=== PATIENT | male | born 1945 | race African-American/Black ===

== ENCOUNTER 2017-07-09 03:00 | Emergency (ER) | payer OTHER, MEDICARE ==
[~2017-07-09 03:00] MED LIST: ASPI81TA82 PO; NITR-29 PO; QUET200 PO; TERA5CAP3 PO
[2017-07-09 03:01] VITALS: BP 159/93; PULSE 90; RESP 16; TEMP 98.5; O2SAT 98
[2017-07-09] MEDS ORDERED: ASPI81CH7 PO (03:14)
[2017-07-09] MEDS ORDERED: TERA5CAP3 PO (03:14)
[2017-07-09] MEDS ORDERED: SODIUM CHLOR 0.9% 1000 ML INJ 1,000 ML IV ONE (04:30)
[2017-07-09 04:47] LABS: BASOPHIL % 0.3 % (0.0-2.0); EOSINOPHIL # 0.1 TH/MM3 (0-0.4); EOSINOPHIL % 1.5 % (0.0-4.0); HEMATOCRIT 47.9 % (39.0-51.0); HEMO FLAGS DIFF FINAL; LYMPH % 11.3 % (9.0-44.0); LYMPHOCYTE # 1.1 TH/MM3 (1.0-4.8); MEAN CELL VOLUME 96.6 FL (80.0-100.0); MEAN CORPUSCULAR HEMOGLOBIN 32.3 PG (27.0-34.0); MEAN CORPUSCULAR HGB CONC 33.4 % (32.0-36.0); MONO % 5.1 % (0.0-8.0); NEUT % 81.8 % (16.0-70.0); PLATELET COUNT 275 TH/MM3 (150-450); RED BLOOD COUNT 4.96 MIL/MM3 (4.50-5.90); RED CELL DISTRIBUTION WIDTH 14.3 % (11.6-17.2); WHITE BLOOD COUNT 9.8 TH/MM3 (4.0-11.0)
[2017-07-09 04:50] LABS: BLOOD, URINE NEG (NEG); GLUCOSE,URINE NEG (NEG); KETONE, URINE NEG (NEG); NITRITE,URINE NEG (NEG); URINE COLOR LIGHT-YELLOW (YELLW/STRAW)
[2017-07-09 04:52] LABS: COMMENT (UR) CULT NOT INDICATED; CULTURE IF INDICATED CULT NOT INDICATED
[2017-07-09 05:11] LABS: ANION GAP 11 MEQ/L (5-15); AST (GOT) 22 U/L (15-37); BICARBONATE 22.7 MEQ/L (21.0-32.0); BLOOD UREA NITROGEN 8 MG/DL (7-18); CHLORIDE 106 MEQ/L (98-107); GLOMERULAR FILTRATION RATE 103 ML/MIN (>89); SODIUM (NA) 140 MEQ/L (136-145)
[2017-07-09 05:14] LABS: ALKALINE PHOSPHATASE 87 U/L (45-117); ALT (GPT) 25 U/L (12-78); TOTAL BILIRUBIN ADULT 0.4 MG/DL (0.2-1.0)
--- NOTE | 2017-07-09 05:23 | PD ---
HPI Chief Complaint: Complaint Time Seen by Provider: 03:52 Travel History International Travel<30 days: No Contact w/Intl Traveler<30days: No Traveled to known affect area: No History of Present Illness HPI This is a 71-year-old male who has a history of enlarged prostate who presents to the emergency department with difficulty urinating for 5 hours. He feels pressure in his lower abdomen, constant, moderate severity, with no fevers or chills. [facility] he [facility] for [facility]. He's required a catheter in the past. [facility] Past Medical History Medical History: Denies Significant Hx ?: Not Past Surgical History Surgical History: No Previous Surgery Social History Alcohol Use: Yes Tobacco Use: No (hx) Substance Use: No Allergies-Medications (Allergen,Severity, Reaction): Coded Allergies: sertraline (Unverified Allergy, Unknown, 07/09/17) Reported Meds & Prescriptions Reported Meds & Active Scripts Active Reported Terazosin (Terazosin HCl) 5 Mg Cap 5 Mg PO HS Aspirin Children's (Aspirin) 81 Mg Chew 81 Mg PO DAILY Review of Systems Except as stated in HPI: all other systems reviewed are Neg Physical Exam Narrative GENERAL:Well appearing, no acute distress SKIN: Focused skin assessment warm and dry. HEAD: Atraumatic. Normocephalic. EYES: Pupils equal and round. No injection or drainage. ENT: Moist mucous membranes NECK: Trachea midline. CARDIOVASCULAR: Regular rate and rhythm. No murmur appreciated. RESPIRATORY: Clear to auscultation. Breath sounds equal bilaterally. GASTROINTESTINAL: Abdomen soft, mildly tender to palpation in the suprapubic region with no rebound or guarding. MUSCULOSKELETAL: No obvious deformities. NEUROLOGICAL: Awake and alert. No obvious cranial nerve deficits. Moving all extremities. PSYCHIATRIC: Appropriate mood and affect; insight and judgment normal. Data Data Last Documented VS Vital Signs Date Time Temp Pulse Resp B/P (MAP) Pulse Ox O2 Delivery O2 Flow Rate FiO2 07/09/17 03:01 98.5 90 16 159/93 (115) 98 Room Air Orders Orders Urinary Catheter Insert/Apply (07/09/17 03:55) Urinalysis - C+S If Indicated (07/09/17 04:03) Complete Blood Count With Diff (07/09/17 04:27) Comprehensive Metabolic Panel (07/09/17 04:27) ^ Insert Iv (07/09/17 04:27) Sodium Chlor 0.9% 1000 Ml Inj (Ns 1000 M (07/09/17 04:30) Labs Laboratory Tests Test 07/09/17 04:20 White Blood Count 9.8 TH/MM3 Red Blood Count 4.96 MIL/MM3 Hemoglobin 16.0 GM/DL Hematocrit 47.9 % Mean Corpuscular Volume 96.6 FL Mean Corpuscular Hemoglobin 32.3 PG Mean Corpuscular Hemoglobin Concent 33.4 % Red Cell Distribution Width 14.3 % Platelet Count 275 TH/MM3 Mean Platelet Volume 8.2 FL Neutrophils (%) (Auto) 81.8 % Lymphocytes (%) (Auto) 11.3 % Monocytes (%) (Auto) 5.1 % Eosinophils (%) (Auto) 1.5 % Basophils (%) (Auto) 0.3 % Neutrophils # (Auto) 8.0 TH/MM3 Lymphocytes # (Auto) 1.1 TH/MM3 Monocytes # (Auto) 0.5 TH/MM3 Eosinophils # (Auto) 0.1 TH/MM3 Basophils # (Auto) 0.0 TH/MM3 CBC Comment DIFF FINAL Differential Comment Urine Color LIGHT-YELLOW Urine Turbidity CLEAR Urine pH 5.0 Urine Specific [place] 1.004 Urine Protein NEG mg/dL Urine Glucose (UA) NEG mg/dL Urine Ketones NEG mg/dL Urine Occult Blood NEG Urine Nitrite NEG Urine Bilirubin NEG Urine Urobilinogen LESS THAN 2.0 MG/DL Urine Leukocyte Esterase NEG Urine RBC 1 /hpf Microscopic Urinalysis Comment CULT NOT INDICATED Blood Urea Nitrogen 8 MG/DL Creatinine 0.89 MG/DL Random Glucose 102 MG/DL Total Protein 7.6 GM/DL Albumin 4.0 GM/DL Calcium Level 8.6 MG/DL Alkaline Phosphatase 87 U/L Aspartate Amino Transf (AST/SGOT) 22 U/L Alanine Aminotransferase (ALT/SGPT) 25 U/L Total Bilirubin 0.4 MG/DL Sodium Level 140 MEQ/L Potassium Level 4.0 MEQ/L Chloride Level 106 MEQ/L Carbon Dioxide Level 22.7 MEQ/L Anion Gap 11 MEQ/L Estimat Glomerular Filtration Rate 103 ML/MIN MDM Medical Decision Making Medical Screen Exam Complete: Yes Emergency Medical Condition: Yes Interpretation(s) No leukocytosis Hypertension Electrolytes are reassuring Urinalysis is negative for infection Differential Diagnosis Urinary retention, BPH, electrolyte abnormality, UTI Narrative Course This is a 71-year-old male who has a history of BPH who presents to the emergency department in acute urinary retention. A Khan catheter was placed and he diuresed 1500 cc of urine. Labs are obtained which were reassuring. The patient appears well and I think the patient can be discharged and follow up with urology. Diagnosis Primary Impression: Acute urinary retention Patient Instructions: General Instructions Additional Instructions: If you develop fever, persistent vomiting, back pain, or inability to eat return to the emergency department. Follow-up with a urologist as soon as possible. Med/Other Pt SpecificInfo: No Change to Meds Disposition: 01 DISCHARGE HOME Condition: Stable Nataliia Clarke MD Jul 09, 2017 05:23
== END 2017-07-09 05:59 | disposition home or self-care (01) ==
LOC: NEPC 03:00
DX: R33.9 Retention of urine, unspecified (principal); N40.1 Benign prostatic hyperplasia with lower urinary tract symptoms
CPT/HCPCS: 51702; 80053; 81001; 85025; 96360; 99284; J7030

== ENCOUNTER 2017-07-26 06:05 | Emergency (ER) | payer OTHER, MEDICARE ==
[~2017-07-26] VITALS: Ht 185.4 cm; Wt 66.0 kg
[~2017-07-26 06:05] MED LIST changes: +ASPI81CH7 PO; -ASPI81TA82 PO; -NITR-29 PO; -QUET200 PO
[2017-07-26 06:07] VITALS: BP 187/85; PULSE 71; RESP 16; TEMP 97.8; O2SAT 94
[2017-07-26 06:31] VITALS: BP 172/83; PULSE 57; RESP 16; O2SAT 93
--- NOTE | 2017-07-26 06:38 | PD ---
HPI Chief Complaint: Medical Clearance Time Seen by Provider: 06:28 Travel History International Travel<30 days: No Contact w/Intl Traveler<30days: No Traveled to known affect area: No History of Present Illness HPI Patient is a 71-year-old male presenting to the emergency department to have his Khan catheter removed. Patient states it was placed approximately 3 weeks ago due to urinary retention. He does not have an appointment with his urologist for another month and he states it's irritated. Patient reports his pain as a 3 out of 10 and describes it as sore. He denies any abdominal pain, fevers. He reports a history of BPH and is currently on Terazosin. [facility] Past Medical History Genitourinary: Yes Social History Alcohol Use: Yes Tobacco Use: No (hx) Substance Use: No Allergies-Medications (Allergen,Severity, Reaction): Coded Allergies: sertraline (Unverified Allergy, Unknown, 07/26/17) Reported Meds & Prescriptions Reported Meds & Active Scripts Active Reported Terazosin (Terazosin HCl) 5 Mg Cap 5 Mg PO HS Aspirin Children's (Aspirin) 81 Mg Chew 81 Mg PO DAILY Review of Systems Except as stated in HPI: all other systems reviewed are Neg Genitourinary: Positive: Other (Khan catheter) Physical Exam Narrative GENERAL: Thin, well-developed, alert gentleman. Resting comfortably in no acute distress. SKIN: Warm and dry. HEAD: Normocephalic. EYES: No scleral icterus. No injection or drainage. NECK: Supple, trachea midline. No JVD or lymphadenopathy. CARDIOVASCULAR: Regular rate and rhythm without murmurs, gallops, or rubs. RESPIRATORY: Breath sounds equal bilaterally. No accessory muscle use. GASTROINTESTINAL: Abdomen soft, non-tender, nondistended. GENITOURINARY: No urethral discharge. Urinary catheter in place MUSCULOSKELETAL: No cyanosis, or edema. BACK: Nontender without obvious deformity. No CVA tenderness. Data Data Last Documented VS Vital Signs Date Time Temp Pulse Resp B/P (MAP) Pulse Ox O2 Delivery O2 Flow Rate FiO2 07/26/17 06:31 57 16 172/83 (112) 93 07/26/17 06:07 97.8 [facility] Medical Decision Making Medical Screen Exam Complete: Yes Emergency Medical Condition: Yes Interpretation(s) Vital Signs Date Time Temp Pulse Resp B/P (MAP) Pulse Ox O2 Delivery O2 Flow Rate FiO2 07/26/17 06:19 56 16 07/26/17 06:07 97.8 71 16 187/85 (288) 20 Differential Diagnosis Obstruction versus retention versus urinary tract infection versus other Narrative Course Patient is a 71-year-old male presenting to the emergency department to have a urinary catheter removed due to irritation. Patient has been seen for this reason in the past. He has an appointment with his urologist in one month. Patient was advised on the risks of removing the urinary catheter including possible retention again. Patient continued to want his catheter removed. Catheter was removed without difficulty. Patient will be kept to assess whether he can urinate without difficulty prior to discharge. Care of patient transferred to SAMIRA Bianchi. She will determine patient' s disposition. Urvashi Meier Jul 26, 2017 06:38
--- NOTE | 2017-07-26 08:41 | PD ---
Physical Exam Time Seen by Provider: 08:39 Narrative Please refer to previous providers documentation for details surrounding the patient's current visit. Data Data Last Documented VS Vital Signs Date Time Temp Pulse Resp B/P (MAP) Pulse Ox O2 Delivery O2 Flow Rate FiO2 07/26/17 06:31 57 16 172/83 (112) 93 07/26/17 06:07 97.8 Orders Orders Diet Regular Basic (07/26/17 Breakfast) MDM Medical Record Reviewed: Yes Supervised Visit with HANNA: No Narrative Course Patient presented with Khan catheter in place. It has been removed by [facility] the patient would void and then be discharged. Patient has voided at this time. He'll be discharged home. He has an appointment with urology next week. He agrees to return immediately with any acute worsening symptoms. Diagnosis Primary Impression: Encounter for Khan catheter removal Referrals: Primary Care Physician Urologist Patient Instructions: General Instructions, Urinary Retention in Men (DC) Additional Instruction: Maintain adequate oral hydration Follow-up with her primary care provider Keep your urologist appointment Return immediately to the emergency department with any acute worsening of symptoms Med/Other Pt SpecificInfo: No Change to Meds Disposition: 01 DISCHARGE HOME Condition: Stable MunozMaddison champagne [facility] Jul 26, 2017 08:41
[2017-07-26 08:51] VITALS: BP 152/76
== END 2017-07-26 09:02 | disposition home or self-care (01) ==
LOC: NEPD 06:05
DX: Z46.6 Encounter for fitting and adjustment of urinary device (principal); T83.84XA Pain due to genitourinary prosthetic devices, implants and grafts, initial encounter; Z87.448 Personal history of other diseases of urinary system
CPT/HCPCS: 99283

== ENCOUNTER 2017-07-27 03:03 | Emergency (ER) | payer OTHER, MEDICARE ==
[~2017-07-27] VITALS: Ht 185.4 cm; Wt 65.0 kg
[2017-07-27 03:03] VITALS: BP 219/98; PULSE 83; RESP 18; TEMP 97.8; O2SAT 95
--- NOTE | 2017-07-27 03:36 | PD ---
HPI Chief Complaint: Complaint Time Seen by Provider: 03:16 Travel History International Travel<30 days: No Contact w/Intl Traveler<30days: No Traveled to known affect area: No History of Present Illness HPI patient had his bautista removed in [facility] ED, and was able to void...but now less than 24 hours later, he has severe inability to urinate but with suprapubic pain and pressure, feels just like when he had urinary retention. patient denies fever/cp/n/v/d/cough/rhinorrhea or any other symptoms. pcp [facility] Past Medical History Medical History: Denies Significant Hx Diminished Hearing: No Genitourinary: Yes Immunizations Current: Yes Past Surgical History Surgical History: No Previous Surgery Social History Alcohol Use: Yes (2 beer per day) Tobacco Use: Yes ( 2 cig per day ) Substance Use: No Allergies-Medications (Allergen,Severity, Reaction): Coded Allergies: sertraline (Unverified Allergy, Unknown, 07/26/17) Reported Meds & Prescriptions Reported Meds & Active Scripts Active Reported Terazosin (Terazosin HCl) 5 Mg Cap 5 Mg PO HS Aspirin Children's (Aspirin) 81 Mg Chew 81 Mg PO DAILY Review of Systems Except as stated in HPI: all other systems reviewed are Neg Genitourinary: Positive: Decreased Urinary Output, Pelvic Pain (suprapubic pain , unable to urinate) Physical Exam Narrative GENERAL: SKIN: Warm and dry. HEAD: Atraumatic. Normocephalic. EYES: Pupils equal and round. No scleral icterus. No injection or drainage. ENT: No nasal bleeding or discharge. Mucous membranes pink and moist. NECK: Trachea midline. No JVD. CARDIOVASCULAR: Regular rate and rhythm. RESPIRATORY: No accessory muscle use. Clear to auscultation. Breath sounds equal bilaterally. GASTROINTESTINAL: Abdomen soft, suprapubic ttp, and distended urinary bladder palpated. MUSCULOSKELETAL: Extremities without clubbing, cyanosis, or edema. No obvious deformities. NEUROLOGICAL: Awake and alert. No obvious cranial nerve deficits. Motor grossly within normal limits. Five out of 5 muscle strength in the arms and legs. Normal speech. PSYCHIATRIC: Appropriate mood and affect; insight and judgment normal. Data Data Last Documented VS Vital Signs Date Time Temp Pulse Resp B/P (MAP) Pulse Ox O2 Delivery O2 Flow Rate FiO2 07/27/17 03:03 97.8 83 18 219/98 (138) 95 Room Air Orders Orders Urinalysis - C+S If Indicated (07/27/17 03:26) Urinary Catheter Insert/Apply (07/27/17 03:26) Labs Laboratory Tests Test 07/27/17 03:30 Urine Color LIGHT-YELLOW Urine Turbidity CLEAR Urine pH 5.5 Urine Specific [place] 1.007 Urine Protein NEG mg/dL Urine Glucose (UA) NEG mg/dL Urine Ketones NEG mg/dL Urine Occult Blood NEG Urine Nitrite NEG Urine Bilirubin NEG Urine Urobilinogen LESS THAN 2.0 MG/DL Urine Leukocyte Esterase SMALL Urine WBC 4 /hpf Microscopic Urinalysis Comment CULT NOT INDICATED MDM Medical Decision Making Medical Screen Exam Complete: Yes Emergency Medical Condition: Yes Medical Record Reviewed: Yes Differential Diagnosis UTI V URINARY RETENTION V BPH OR STENOSIS REQUIRING DILATION Narrative Course PATIENT GREATLY RELIEVED AFTER BAUTISTA PLACED, HE VOIDED 800CC ON INITIAL VOID. PATIENT'S UA NEG FOR UTI. PATIENT HAS NOW PROVEN THAT WIHTOUT A UROLOGICAL PROCEDURE WILL RECURR Diagnosis Primary Impression: urinary retention Referrals: Linden Brown MD FOR FURTHER CARE OF YOUR BAUTISTA AND MAKE THEM AWARE THAT WHENEVER YOU HAVE NOT HAD A BAUTISTA, YOU CAN'T VOID, SO YOU WILL NEED A PROCEDURE TO HELP ENLARGE THE URETHRA AND BE ABLE TO VOID WITHOUT BAUTISTA Disposition: 01 DISCHARGE HOME Condition: Stable Idris Webb MD Jul 27, 2017 03:36
[2017-07-27 03:48] LABS: BLOOD, URINE NEG (NEG); COMMENT (UR) CULT NOT INDICATED; CULTURE IF INDICATED CULT NOT INDICATED; GLUCOSE,URINE NEG (NEG); KETONE, URINE NEG (NEG); NITRITE,URINE NEG (NEG); PH, URINE 5.5 (5.0-8.5); URINE COLOR LIGHT-YELLOW (YELLW/STRAW)
[2017-07-27 05:15] VITALS: BP 152/85
== END 2017-07-27 05:16 | disposition home or self-care (01) ==
LOC: NEPC 03:03
DX: R33.9 Retention of urine, unspecified (principal); Z87.448 Personal history of other diseases of urinary system; Z72.0 Tobacco use
CPT/HCPCS: 51702; 81001